=== PATIENT | female | born 2000 | race Hispanic/Latino ===

== ENCOUNTER 2021-01-04 09:53 | Day surgery (SDC) | payer BC, OTHER ==
[2021-01-04] MEDS ORDERED: hydrALAZINE 20 MG/ML VIAL SLOW IVP PRN (09:56)
[2021-01-04 10:22] VITALS: BMI 33.8
[2021-01-04 11:00] LABS: #Eosinphils 0.2 10x3/uL (0.0-0.5); #Monocytes 0.7 10x3/uL (0.0-1.1); #Neutrophils 7.1 10x3/uL (1.5-8.4); %Basophils 0.3 % (0.0-2.0); %Eosinophils 1.8 % (0.0-6.0); %Lymphocytes 22.9 % (18.0-47.0); %Monocytes 6.4 % (0.0-10.0); Mean Corpuscular HGB CONC 33.3 g/dL (32.0-36.0); Mean Corpuscular Hemoglobin 28.1 pg (27.0-33.0); Mean Corpuscular Volume 84.3 fl (81.6-98.3); Mean Platelet Volume 9.7 fl (7.4-10.4); Platelet Count 279 10x3/uL (150-450); RBC Distribution Width 13.8 % (11.5-14.5); Red Blood Cell (RBC) Count 3.56 10x6/uL (3.90-5.03); White Blood Cell (WBC) Count 10.4 10x3/uL (3.5-10.5)
[2021-01-04 11:22] LABS: ALT (SGPT) 13 U/L (8-55); AST (SGOT) 12 U/L (5-30); Albumin 3.2 g/dL (3.5-5.0); Alkaline Phosphatase 79 U/L (40-100); Anion Gap 14 mmol/L (10-20); BUN (Urea Nitrogen) Less than 4 mg/dL (8.4-21.0); Bilirubin, Total 0.2 mg/dL (0.2-1.2); Calc. Creatinine Clearance 248 mL/min (70-130); Calcium 8.3 mg/dL (7.8-10.44); Carbon Dioxide 20 mmol/L (22-29); Chloride 109 mmol/L (98-107); Globulin 3.1 g/dL (2.4-3.5); Glucose 87 mg/dL (70-105); Potassium 3.7 mmol/L (3.5-5.1); Protein, Total 6.3 g/dL (6.0-8.3); Sodium 139 mmol/L (136-145)
== END 2021-01-04 14:17 | disposition home health service (06) ==
LOC: CSHLD/OP 09:53
PROVIDERS: ATTEND Family Medicine
DX: O99.891 Other specified diseases and conditions complicating pregnancy (principal); R10.2 Pelvic and perineal pain; O23.592 Infection of other part of genital tract in pregnancy, second trimester; B96.89 Other specified bacterial agents as the cause of diseases classified elsewhere; Z3A.20 20 weeks gestation of pregnancy
CPT/HCPCS: 76705; 80053; 85025; 87480; 87510; 87660; 99283

== ENCOUNTER 2021-05-14 19:00 | Inpatient (IN) | payer BC, OTHER ==
[2021-05-14 19:19] VITALS: BMI 38.4
[2021-05-14] MEDS ORDERED: Bupivacaine 0.25% HCL 30 ML VIAL ONE (19:39)
[2021-05-14] MEDS ORDERED: Ibuprofen 800 MG TAB PO PRN (20:11)
[2021-05-14] MEDS ORDERED: hydrALAZINE 20 MG/ML VIAL SLOW IVP PRN (20:11)
[2021-05-14] MEDS ORDERED: Promethazine HCl 25 MG/ML VIAL IM PRN (20:11)
[2021-05-14] MEDS ORDERED: Methylergonovine 0.2 MG/ML VIAL IM PRN (20:11)
[2021-05-14] MEDS ORDERED: Misoprostol 200 MCG TAB PR PRN (20:11)
[2021-05-14] MEDS ORDERED: Acetaminophen 500 MG TAB PO PRN (20:11)
[2021-05-14] MEDS ORDERED: Lidocaine 1% (PF) 30 ML VIAL SC PRN (20:11)
[2021-05-14] MEDS ORDERED: Carboprost 250 MCG/ML AMP IM PRN (20:11)
[2021-05-14] MEDS ORDERED: Ondansetron PF 4 MG/2 ML Vial IVP PRN (20:11)
[2021-05-14] MEDS ORDERED: NS w/ Oxytocin 30 units 500 ML IV SCH ×2 (20:15)
[2021-05-14] MEDS ORDERED: Misoprostol 100 MCG TAB VAG SCH (20:15)
[2021-05-14] MEDS ORDERED: Bicitra 30 ML UDCUP PO PRN (20:21)
[2021-05-14] MEDS ORDERED: Famotidine/PF 20 mg/2ml Vial SLOW IVP PRN (20:21)
[2021-05-14] MEDS ORDERED: CEFAZOLIN 2 GM in Premix Bag 1 BAG IVPB SCH (20:30)
[2021-05-14] MEDS ORDERED: Azithromycin 500 MG in Sodium Chloride 0.9% 250 ML 250 ML IVPB SCH (20:30)
[2021-05-14] MEDS: Misoprostol 100 MCG TAB VAG SCH (20:45)
[2021-05-14] MEDS ORDERED: Misoprostol 100 MCG TAB ONE (20:49)
[2021-05-14 20:50] LABS: Hemoglobin 10.9 g/dL (12.0-15.5); Mean Corpuscular HGB CONC 31.3 g/dL (32.0-36.0); Mean Corpuscular Hemoglobin 25.2 pg (27.0-33.0); Mean Corpuscular Volume 80.4 fl (81.6-98.3); Mean Platelet Volume 10.7 fl (7.4-10.4); Platelet Count 275 10x3/uL (150-450); RBC Distribution Width 17.2 % (11.5-14.5); Red Blood Cell (RBC) Count 4.33 10x6/uL (3.90-5.03); White Blood Cell (WBC) Count 9.7 10x3/uL (3.5-10.5)
[2021-05-14] MEDS: Lactated Ringer's 1,000 ML IV SCH (21:00)
[2021-05-14 21:22] LABS: Hep B Surf Ag Non-Reactive S/CO (NonReactive)
[2021-05-14 21:23] LABS: Syphilis Antibody Nonreactive (Nonreactive); Syphilis Antibody Index 0.03 S/CO (<1.00 Non-Reactive)
[2021-05-14 21:27] LABS: HBSAg Index 0.13 S/CO (0-0.99)
[2021-05-15] MEDS: Misoprostol 100 MCG TAB VAG SCH ×7 (03:00→18:49)
[2021-05-15] MEDS: Lactated Ringer's 1,000 ML IV SCH ×2 (05:00→08:54)
[2021-05-15] MEDS: Butorphanol Tartrate 1 MG/ML VIAL SLOW IVP PRN ×2 (06:23→18:18)
[2021-05-15] MEDS ORDERED: Fentanyl 2 mcg/Bup 0.1% Cadd 100 ML ONE (09:06)
[2021-05-15] MEDS ORDERED: ePHEDrine Sulfate 50 MG/10 ML VIAL SLOW IVP PRN (09:40)
[2021-05-15] MEDS ORDERED: Lactated Ringer's 500 ML IV PRN (09:40)
[2021-05-15] MEDS ORDERED: Promethazine HCl 25 MG/ML VIAL IM PRN (09:40)
[2021-05-15] MEDS ORDERED: Ondansetron PF 4 MG/2 ML Vial IVP PRN ×2 (09:40→22:40)
[2021-05-15] MEDS ORDERED: Naloxone HCl 0.4 mg/ml Vial IVP PRN ×2 (09:40)
[2021-05-15] MEDS ORDERED: Acetaminophen 325 MG TAB PO PRN (09:40)
[2021-05-15] MEDS ORDERED: Hydrocerin (Eucerin) Cream 120 gm Jar TOP PRN (09:40)
[2021-05-15] MEDS ORDERED: diphenhydrAMINE 50 MG/ML VIAL IVP PRN (09:40)
[2021-05-15] MEDS ORDERED: Communication Order-Pharmacy FS PRN (09:45)
[2021-05-15] MEDS ORDERED: Fentanyl 2 mcg/Bupivacaine 0.1% Cassette 100 ML EPIDURAL SCH (09:45)
[2021-05-15] MEDS ORDERED: Butorphanol Tartrate 1 MG/ML VIAL ONE (18:12)
[2021-05-15] MEDS ORDERED: NS w/ Oxytocin 30 units 500 ML IV SCH (22:40)
[2021-05-15] MEDS ORDERED: Boostrix 0.5 ML (Tdap) VIAL IM ONE (22:40)
[2021-05-15] MEDS ORDERED: Lanolin Ointment 7 GM TUBE TOP PRN (22:40)
[2021-05-15] MEDS ORDERED: Misoprostol 200 MCG TAB VAG PRN (22:40)
[2021-05-15] MEDS ORDERED: Preparation H Ointment 28 GM TUBE PR PRN (22:40)
[2021-05-15] MEDS ORDERED: Benzocaine-Menthol 82.5 ML CAN TOP PRN (22:40)
[2021-05-15] MEDS ORDERED: Bisacodyl 10 MG SUPP PR PRN (22:40)
[2021-05-15] MEDS ORDERED: Varicella virus, LIVE 0.5 ML VIAL SC ONE (22:40)
[2021-05-15] MEDS ORDERED: hydrALAZINE 20 MG/ML VIAL SLOW IVP PRN (22:40)
[2021-05-15] MEDS ORDERED: diphenhydrAMINE 25 MG CAP PO PRN (22:40)
[2021-05-15] MEDS ORDERED: Milk Of Magnesia 30 ML UDCUP PO PRN (22:40)
[2021-05-15] MEDS ORDERED: Docusate Calcium (SURFAK) 240 MG CAP PO SCH (23:15)
[2021-05-15] MEDS ORDERED: Ibuprofen 800 MG TAB PO SCH (23:30)
[2021-05-16] MEDS: Lactated Ringer's 1,000 ML IV SCH (02:14)
[2021-05-16] MEDS: Misoprostol 100 MCG TAB VAG SCH (02:14)
[2021-05-16 06:24] LABS: Hemoglobin 9.9 g/dL (12.0-15.5); Mean Corpuscular HGB CONC 30.6 g/dL (32.0-36.0); Mean Corpuscular Hemoglobin 25.6 pg (27.0-33.0); Mean Corpuscular Volume 83.7 fl (81.6-98.3); Mean Platelet Volume 10.9 fl (7.4-10.4); Platelet Count 211 10x3/uL (150-450); RBC Distribution Width 17.5 % (11.5-14.5); Red Blood Cell (RBC) Count 3.87 10x6/uL (3.90-5.03)
[2021-05-16] MEDS: Ibuprofen 800 MG TAB PO SCH ×3 (06:25→22:30)
[2021-05-16] MEDS: Prenatal Vitamin 1 TAB PO SCH (08:32)
[2021-05-16] MEDS: Docusate Calcium (SURFAK) 240 MG CAP PO SCH ×2 (08:32→22:31)
[2021-05-16] MEDS: Ferrous Sulfate 325 MG TAB PO SCH ×2 (08:32→16:59)
[2021-05-17] MEDS: Ibuprofen 800 MG TAB PO SCH (05:38)
[2021-05-17] MEDS: Docusate Calcium (SURFAK) 240 MG CAP PO SCH (08:42)
[2021-05-17] MEDS: Ferrous Sulfate 325 MG TAB PO SCH (08:42)
[2021-05-17] MEDS: Prenatal Vitamin 1 TAB PO SCH (08:42)
[2021-05-17 09:06] VITALS: BP 110/56; TEMP 98.1
== END 2021-05-17 10:30 | disposition home or self-care (01) | DRG 807 ==
LOC: CSHLD 19:02 → CSHPP 05-15 22:10
PROVIDERS: ADMIT Family Medicine; ATTEND Family Medicine
PROC: 10E0XZZ Delivery of Products of Conception, External Approach (ICD-10-PCS; principal; 2021-05-15)
PROC: 10907ZC Drainage of Amniotic Fluid, Therapeutic from Products of Conception, Via Natural or Artificial Opening (ICD-10-PCS; 2021-05-15)
PROC: 3E033VJ Introduction of Other Hormone into Peripheral Vein, Percutaneous Approach (ICD-10-PCS; 2021-05-15)
PROC: 3E0P7VZ Introduction of Hormone into Female Reproductive, Via Natural or Artificial Opening (ICD-10-PCS; 2021-05-15)
DX: O99.02 Anemia complicating childbirth (principal); Z37.0 Single live birth; Z20.822 Contact with and (suspected) exposure to COVID-19; Z3A.39 39 weeks gestation of pregnancy; O99.214 Obesity complicating childbirth; E66.9 Obesity, unspecified; D64.9 Anemia, unspecified; O71.82 Other specified trauma to perineum and vulva
CPT/HCPCS: 36415; 51702; 85027; 86780; 86850; 86900; 86901; 87340; J0595; J2210; J2405; J2590; S0020

== ENCOUNTER 2022-07-04 14:24 | Emergency (ER) | payer BC, OTHER ==
[2022-07-04 15:09] LABS: #Eosinphils 0.1 10x3/uL (0.0-0.5); #Monocytes 0.4 10x3/uL (0.0-1.1); #Neutrophils 10.2 10x3/uL (1.5-8.4); %Basophils 0.3 % (0.0-2.0); %Eosinophils 0.7 % (0.0-6.0); %Lymphocytes 7.7 % (18.0-47.0); %Monocytes 3.7 % (0.0-10.0); %Neutrophils 87.1 % (40.0-75.0); Hemoglobin 13.6 g/dL (12.0-15.5); Mean Corpuscular HGB CONC 33.8 g/dL (32.0-36.0); Mean Corpuscular Volume 82.7 fl (81.6-98.3); Mean Platelet Volume 10.2 fl (7.4-10.4); Platelet Count 355 10x3/uL (150-450); RBC Distribution Width 12.7 % (11.5-14.5); Red Blood Cell (RBC) Count 4.86 10x6/uL (3.90-5.03); White Blood Cell (WBC) Count 11.7 10x3/uL (3.5-10.5)
[2022-07-04] MEDS ORDERED: Ketorolac Tromethamine 30 MG/ML VIAL ONE (15:09)
[2022-07-04 16:00] LABS: Bilirubin Neg (Negative); Blood, Urine 250 (Negative); Glucose, Urine (Dipstick) Normal (Negative); Ketone, Urine Negative (Negative); Leukocyte Negative (Negative); Nitrite Negative (Negative); Protein, Urine (Dipstick) 30 mg/dl (Neg-Trace); Specific Gravity, Urine 1.015 (1.005-1.030); pH, Urine 6.5 (5.0-9.0)
[2022-07-04 16:05] LABS: Bacteria/HPF Rare-Few HPF (None Seen); RBC/HPF 21-50 HPF (0-3); Squamous Epithelial 0-3 HPF (0-3); WBC/HPF 0-3 HPF (0-3)
[2022-07-04 16:07] LABS: BHCG - Serum Negative (NEGATIVE); Pregs Control Background? CLEAR/WHITE (CLR/WHITE); Pregs Control Bar Appear? YES (CONTROL BAR)
[2022-07-04 16:13] LABS: ALT (SGPT) 20 U/L (8-55); AST (SGOT) 22 U/L (5-34); Albumin 4.1 g/dL (3.5-5.0); Alkaline Phosphatase 108 U/L (40-110); Anion Gap 13 mmol/L (10-20); BUN (Urea Nitrogen) 8 mg/dL (7.0-18.7); Bilirubin, Total 0.6 mg/dL (0.2-1.2); Calc. Creatinine Clearance 0 mL/min (70-130); Calcium 8.3 mg/dL (7.8-10.44); Carbon Dioxide 19 mmol/L (22-29); Chloride 107 mmol/L (98-107); Estimated GFR 131; Globulin 3.4 g/dL (2.4-3.5); Glucose 104 mg/dL (70-105); Potassium 3.6 mmol/L (3.5-5.1); Protein, Total 7.5 g/dL (6.0-8.3); Sodium 135 mmol/L (136-145)
== END 2022-07-04 17:08 | disposition home or self-care (01) ==
LOC: CSHERS 14:24
DX: R11.2 Nausea with vomiting, unspecified (principal); R10.9 Unspecified abdominal pain
CPT/HCPCS: 80053; 81003; 81015; 84703; 85025; 96361; 96374; J1885

== ENCOUNTER 2024-08-20 12:19 | Emergency (ER) | payer BC ==
[2024-08-20] MEDS ORDERED: Ketorolac Tromethamine 30 MG (1 mL) VIAL ONE (13:14)
[2024-08-20 13:17] LABS: Bilirubin Neg (Negative); Blood, Urine 50 (Negative); Clarity Clear (Clear); Glucose, Urine (Dipstick) Normal (Negative); Ketone, Urine Negative (Negative); Leukocyte Negative (Negative); Nitrite Negative (Negative); Protein, Urine (Dipstick) 15 mg/dl (Neg-Trace); Specific Gravity, Urine 1.025 (1.005-1.030)
[2024-08-20 13:25] LABS: Pregnancy Test - Urine (BHCG) Negative (Negative); Specific Gravity 1.025 (1.002-1.036)
[2024-08-20 13:26] LABS: Pregu Control Background? CLEAR/WHITE (CLR/WHITE); Pregu Control Bar Appear? YES (CONTROL BAR)
[2024-08-20 13:32] LABS: Bacteria/HPF None Seen HPF (None Seen); CAUTI Indications for Culture Pelvic or flank pain; RBC/HPF 0-3 HPF (0-3); Squamous Epithelial 0-3 HPF (0-3); WBC/HPF None Seen HPF (0-3)
[2024-08-20 13:33] LABS: Mucous/LPF 1+ LPF (<2+); Urine Culture Reflex No No
== END 2024-08-20 14:21 | disposition home or self-care (01) ==
LOC: CSHERS 12:19
DX: T14.8XXA Other injury of unspecified body region, initial encounter (principal); M54.6 Pain in thoracic spine
CPT/HCPCS: 71046; 81001; 81025; 93005; 96372; J1885

== ENCOUNTER 2025-07-05 15:39 | Day surgery (SDC) | payer BC, OTHER ==
[2025-07-05 16:56] LABS: Glucose, Urine (Dipstick) Normal (Negative); Leukocyte 25 (Negative); Protein, Urine (Dipstick) 15 mg/dl (Neg-Trace); Specific Gravity, Urine 1.010 (1.005-1.030)
[2025-07-05 17:05] LABS: Bacteria/HPF 3+ HPF (None Seen); RBC/HPF 0-3 HPF (0-3)
[2025-07-05 17:06] LABS: Mucous/LPF 3+ LPF (<2+)
[2025-07-05] MEDS ORDERED: hydrALAZINE 20 MG/ML VIAL SLOW IVP PRN (17:59)
== END 2025-07-05 18:08 | disposition home or self-care (01) ==
LOC: CSHLD/OP 15:39
PROVIDERS: ATTEND Student in an Organized Health Care Education/Training Program
DX: O99.891 Other specified diseases and conditions complicating pregnancy (principal); R10.30 Lower abdominal pain, unspecified; Z3A.24 24 weeks gestation of pregnancy
CPT/HCPCS: 81003; 81015; 99285

== ENCOUNTER 2025-08-14 02:22 | Emergency (ER) | payer BC, OTHER ==
[2025-08-14 02:45] LABS: Glucose, Urine (Dipstick) Normal (Negative); Leukocyte 25 (Negative); Protein, Urine (Dipstick) 30 mg/dl (Neg-Trace); Specific Gravity, Urine 1.020 (1.005-1.030)
[2025-08-14 03:00] LABS: Bacteria/HPF Rare-Few HPF (None Seen); CAUTI Indications for Culture Pregnancy; RBC/HPF None Seen HPF (0-3); WBC/HPF 0-3 HPF (0-3)
[2025-08-14 03:02] LABS: Urine Culture Reflex Yes Yes
== END 2025-08-14 03:07 | disposition home or self-care (01) ==
LOC: CSHERS 02:22
DX: O99.513 Diseases of the respiratory system complicating pregnancy, third trimester (principal); K59.00 Constipation, unspecified; O24.419 Gestational diabetes mellitus in pregnancy, unspecified control; Z3A.30 30 weeks gestation of pregnancy
CPT/HCPCS: 81001; 87086; 99283